=== PATIENT | male | born 1995 ===

== ENCOUNTER 2019-07-08 09:18 | Emergency (ER) | payer SELFPAY ==
[2019-07-08 09:32] VITALS: BP 100/66
--- NOTE | 2019-07-08 10:19 | UC ---
Nausea/Vomiting/Diarrhea HPI - HPI Summary HPI Summary: 5 DAYS OF WATERY DIARRHEA. STATES HE IS GOING EVERY HOUR AT LEAST. HAD SOME NAUSEA AND A FEW EPISODES OF VOMITING INITIALLY BUT THAT HAS SINCE STOPPED. NO FEVER. SYMPTOMS STARTED AFTER HE ATE A BREAKFAST SANDWICH AT A [employer]. NO RECENT ANTIBIOTIC USE. - History of Current Complaint Chief Complaint: UCGI Stated Complaint: NAUSEOUS Time Seen by Provider: 07/08/19 09:47 Hx Obtained From: Patient Onset/Duration: Sudden Onset, Lasting Days, Still Present Severity Initially: Moderate Severity Currently: Moderate Pain Intensity: 7 Pain Scale Used: 0-10 Numeric Location: Diffuse Character: Cramping Aggravating Factor(s): Nothing Alleviating Factor(s): Nothing Nausea/Vomiting Presence: Nauseated Diarrhea Presence: Yes Diarrhea Frequency: Every 1-2 hours Diarrhea Duration: 3-7 days Diarrhea Characteristics: Watery - Allergies/Home Medications Allergies/Adverse Reactions: Allergies Allergy/AdvReac Type Severity Reaction Status Date / Time Sulfa (Sulfonamide Allergy Unknown Verified 07/08/19 09:29 Antibiotics) Reaction Details horses Allergy Hives/Diff. Uncoded 07/08/19 09:29 Breathing/I tching pet dander Allergy Hives/Diff. Uncoded 07/08/19 09:29 Breathing/I tching Home Medications: Home Medications Loperamide CAP* [Imodium CAP*] 4 mg PO ONCE PRN 07/08/19 [History Confirmed ] PMH/Surg Hx/FS Hx/Imm Hx Previously Healthy: Yes - Surgical History Surgical History: Yes Surgery Procedure, Year, and Place: endoscopy - Family History Known Family History: Positive: Non-Contributory - Social History Alcohol Use: None Substance Use Type: Marijuana Smoking Status (MU): Current Some Day Smoker Amount Used/How Often: at times Household Exposure Type: Cigarettes Review of Systems All Other Systems Reviewed And Are Negative: Yes Constitutional: Positive: Fatigue ENT: Positive: Negative Respiratory: Positive: Negative Cardiovascular: Positive: Negative Gastrointestinal: Positive: Diarrhea, Nausea Genitourinary: Positive: Negative Physical Exam Triage Information Reviewed: Yes Appearance: No Pain Distress, Well-Nourished, Ill-Appearing - seems fatigued, pale Vital Signs: Initial Vital Signs Temp 98.7 F 07/08/19 09:24 Pulse 99 07/08/19 09:24 Resp 18 07/08/19 09:24 BP 100/66 07/08/19 09:24 Pulse Ox 97 07/08/19 09:24 Vital Signs Reviewed: Yes Eyes: Positive: Conjunctiva Clear ENT: Positive: Hearing grossly normal Neck: Positive: Supple Respiratory Exam: Normal Cardiovascular: Positive: Tachycardia Abdomen Description: Positive: Soft, Other: - TTP LUQ. NO REBOUND OR RIGIDITY. Negative: CVA Tenderness (R), CVA Tenderness (L), Distended, Guarding Bowel Sounds: Positive: Hyperactive Musculoskeletal: Positive: No Edema Neurological: Positive: Alert Psychological: Positive: Age Appropriate Behavior Skin: Negative: Rashes Naus/Vom/Diarrhea Course/Dx - Course Course Of Treatment: PT DECLINES IVF TODAY. STOOL SAMPLE COLLECTED AND SENT FOR TESTING. ZOFRAN IF NEEDED. CLEAR LIQUIDS, BLAND DIET. FOLLOW-UP GI IF NEEDED. - Differential Dx/Diagnosis Provider Diagnosis: Acute diarrhea Condition At Discharge: Stable Discharge ED - Sign-Out/Discharge Documenting (check all that apply): Patient Departure All imaging exams completed and their final reports reviewed: No Studies - Discharge Plan Condition: Stable Disposition: HOME Prescriptions: Ondansetron ODT TAB* [Zofran Odt TAB*] 4 mg PO Q6H PRN #20 tab.odt PRN Reason: Nausea/Vomiting Patient Education Materials: Acute Diarrhea (ED) Forms: *Work Release Referrals: [facility] [Outside] - If Needed Additional Instructions: YOUR DIARRHEA WILL HOPEFULLY BE SELF-LIMITED AND START TO IMPROVE OVER THE NEXT COUPLE OF DAYS. BE SURE TO STAY WELL-HYDRATED. CLEAR LIQUIDS, BLAND DIET. STOOL SAMPLE HAS BEEN SENT FOR TESTING AND WE WILL CALL YOU WITH ANY ABNORMAL RESULTS. GO TO THE ER WITHOUT FAIL IF YOU EXPERIENCE ANY BRIGHT RED BLOOD PER RECTUM, INCREASING PAIN, FEVER OR ANY OTHER CONCERNING SYMPTOMS. CONSIDER FOLLOW-UP WITH GI IF YOUR STOOL STUDIES ARE NEGATIVE AND YOUR SYMPTOMS ARE NOT IMPROVING. [facility] Address: [address], [place] [address] CALL THE NUMBER BELOW FOR ASSISTANCE IN ESTABLISHING WITH A PCP An additional resource available to assist in finding the appropriate physician for your health care needs is the [facility] (Bianca Sanders). You may contact them by calling [phone]. - Billing Disposition and Condition Condition: STABLE Disposition: Home
--- NOTE | 2019-07-09 07:21 | UC ---
- Progress Note Progress Note: stool: neg E. coli neg c diff + wbc O+P pending no change gerry Course/Dx - Diagnoses Provider Diagnoses: Acute diarrhea Discharge ED - Sign-Out/Discharge Documenting (check all that apply): Post-Discharge Follow Up All imaging exams completed and their final reports reviewed: No Studies - Discharge Plan Condition: Stable Disposition: HOME Prescriptions: Ondansetron ODT TAB* [Zofran Odt TAB*] 4 mg PO Q6H PRN #20 tab.odt PRN Reason: Nausea/Vomiting Patient Education Materials: Acute Diarrhea (ED) Forms: *Work Release Referrals: [facility] [Outside] - If Needed Additional Instructions: YOUR DIARRHEA WILL HOPEFULLY BE SELF-LIMITED AND START TO IMPROVE OVER THE NEXT COUPLE OF DAYS. BE SURE TO STAY WELL-HYDRATED. CLEAR LIQUIDS, BLAND DIET. STOOL SAMPLE HAS BEEN SENT FOR TESTING AND WE WILL CALL YOU WITH ANY ABNORMAL RESULTS. GO TO THE ER WITHOUT FAIL IF YOU EXPERIENCE ANY BRIGHT RED BLOOD PER RECTUM, INCREASING PAIN, FEVER OR ANY OTHER CONCERNING SYMPTOMS. CONSIDER FOLLOW-UP WITH GI IF YOUR STOOL STUDIES ARE NEGATIVE AND YOUR SYMPTOMS ARE NOT IMPROVING. [facility] Address: [address], [place] [address] CALL THE NUMBER BELOW FOR ASSISTANCE IN ESTABLISHING WITH A PCP An additional resource available to assist in finding the appropriate physician for your health care needs is the [facility] (Bianca Sanders). You may contact them by calling [phone]. - Billing Disposition and Condition Condition: STABLE Disposition: Home
--- NOTE | 2019-07-11 16:02 | UC ---
- Progress Note Progress Note: Stool cultures were positive for fecal lactoferrin. Nurses will call the patient to see if he is doing better and if he is no better she is to follow-up with his primary care provider. Course/Dx - Diagnoses Provider Diagnoses: Acute diarrhea Discharge ED - Sign-Out/Discharge Documenting (check all that apply): Post-Discharge Follow Up All imaging exams completed and their final reports reviewed: No Studies - Discharge Plan Condition: Stable Disposition: HOME Prescriptions: Ondansetron ODT TAB* [Zofran Odt TAB*] 4 mg PO Q6H PRN #20 tab.odt PRN Reason: Nausea/Vomiting Patient Education Materials: Acute Diarrhea (ED) Forms: *Work Release Referrals: [facility] [Outside] - If Needed Additional Instructions: YOUR DIARRHEA WILL HOPEFULLY BE SELF-LIMITED AND START TO IMPROVE OVER THE NEXT COUPLE OF DAYS. BE SURE TO STAY WELL-HYDRATED. CLEAR LIQUIDS, BLAND DIET. STOOL SAMPLE HAS BEEN SENT FOR TESTING AND WE WILL CALL YOU WITH ANY ABNORMAL RESULTS. GO TO THE ER WITHOUT FAIL IF YOU EXPERIENCE ANY BRIGHT RED BLOOD PER RECTUM, INCREASING PAIN, FEVER OR ANY OTHER CONCERNING SYMPTOMS. CONSIDER FOLLOW-UP WITH GI IF YOUR STOOL STUDIES ARE NEGATIVE AND YOUR SYMPTOMS ARE NOT IMPROVING. [facility] Address: [address], [place] [address] CALL THE NUMBER BELOW FOR ASSISTANCE IN ESTABLISHING WITH A PCP An additional resource available to assist in finding the appropriate physician for your health care needs is the [facility] ([facility]ianca Sanders). You may contact them by calling [phone]. - Billing Disposition and Condition Condition: STABLE Disposition: Home
== END 2019-07-08 10:25 | disposition home or self-care (01) ==
LOC: UCEAST 09:18
DX: R19.7 Diarrhea, unspecified (principal); F17.210 Nicotine dependence, cigarettes, uncomplicated; R11.10 Vomiting, unspecified; R53.83 Other fatigue; Z88.2 Allergy status to sulfonamides; Z91.09 Other allergy status, other than to drugs and biological substances
CPT/HCPCS: 83630; 87045; 87046; 87077; 87328; 87329; 87493; 87899; 99201; G0463